=== PATIENT | female | born 2005 | race Caucasian/White ===

== ENCOUNTER 2024-10-02 12:00 | Emergency (ER) | payer OTHER, SELFPAY ==
[2024-10-02 12:02] VITALS: BP 162/99
[2024-10-02 12:33] LABS: % Basophils 0.8 % (0-2); % Eosinophils 1.5 % (0-6); % Lymphocytes 41.8 % (20.5-51.1); % Monocytes 12.1 % (1.7-9.3); % Neutrophils 43.8 % (42.2-75.2); Absolute Eosinophils 0.1 10^3/uL (0-0.7); Absolute Monocytes 0.6 10^3/uL (0.1-0.6); Absolute Neutrophils 2.1 10^3/uL (1.4-6.5); Hematocrit 38.6 % (37.0-47.0); Hemoglobin 13.1 g/dL (12.0-16.0); Mean Corp Hgb Conc. 33.9 g/dL (33.0-37.0); Mean Corpuscular Hgb 30.8 pg (27.0-31.0); Mean Corpuscular Volume 90.6 fL (81.0-99.0); Mean Platelet Volume 9.2 fL (7.4-10.4); Nucleated Red Blood Cells % 0 %; Platelet Count 323 10^3/uL (130-400); Red Blood Cell Count 4.26 10^6/uL (4.20-5.40); Red Cell Dist. Width 12.1 % (11.5-14.5); White Blood Cell Count 4.8 10^3/uL (4.8-10.8)
[2024-10-02 13:00] LABS: HCG, Serum Qualitative Screen Negative
[2024-10-02 13:02] LABS: ALT (SGPT) 12 U/L (0-35); AST (SGOT) 19 U/L (14-36); Albumin 4.8 g/dl (3.5-5.0); Alkaline Phosphatase 36 U/L (38-126); Blood Urea Nitrogen 11 mg/dl (7-17); Calcium 9.9 mg/dl (8.4-10.2); Carbon Dioxide 26 mmol/L (22-30); Chloride 108 mmol/L (98-107); Glucose 88 mg/dl (70-99); Lipase 42 U/L (23-300); Potassium 4.7 mmol/L (3.5-5.1); Sodium 141 mmol/L (135-145); Total Bilirubin 0.5 mg/dl (0.2-1.3); Total Protein 7.1 g/dl (6.3-8.2); eGFR > 60.00
--- NOTE | 2024-10-02 13:38 | ED.GENMED ---
History of Present Illness
General
Chief Complaint: Abdominal Pain
Source: patient
Time Seen by Provider: 10/02/24 13:26
History of Present Illness
History of Present Illness:
19-year-old female presents to the emergency room complaining about upper abdominal pain. Pain is primary located in the epigastrium and right upper quadrant. Pain was present when she woke up. She has decreased appetite but denies any nausea
vomiting. Patient had a similar episode pain couple days ago which resolved on its own. She does not equate the pain with anything she is eating. No previous abdominal operations. Nothing seems to make pain better or worse
Phy Exam
Physical Exam
Physical Exam:
General: Awake, Alert, Oriented X3. No acute distress.
Vitals: unremarkable
Head: Atraumatic
Eyes: Pupils equal, EOMI
Throat: Airway intact, no exudates
Neck: Trachea midline
Lungs: Clear and equal b/l
Heart: Regular rate, no murmurs
Abd: Soft, mild upper abdominal tenderness to palpation,, No pulsatile mass
Neuro: Nonfocal
Skin: Warm, dry, no rash
Extremities: pulses equal b/l, no edema
Course
Orders/Labs/Results
Orders:
Orders
10/02/24 12:16
Test Result ONCE
10/02/24 12:25
Complete Blood Count/With Diff Urgent
Comprehensive Metabolic Panel Urgent
HCG, Serum Qualitative Screen Urgent
Lipase Urgent
10/02/24 13:37
Ketorolac [Toradol] 15 mg IV NOW STA
US Abdomen Complete/Upper Urgent
Comment:
Reason For Exam: ruq/epigastric pain
Abnormal Lab Results
10/02/24
12:25
Monocytes % 12.1 H %
(1.7-9.3)
Chloride 108 H mmol/L
(98-107)
Alkaline Phosphatase 36 L U/L
(38-126)
10/02/24 12:25
10/02/24 12:25
Vital Signs
Initial and Last Documented VS:
Initial Vital Signs
Temp Pulse Resp BP Pulse Ox
97.6 F 80 18 162/99 99
10/02/24 12:02 10/02/24 12:02 10/02/24 12:02 10/02/24 12:02 10/02/24 12:02
Last Documented Vital Signs
Temp Pulse Resp BP Pulse Ox
97.6 F 56 18 103/68 97
10/02/24 12:02 10/02/24 14:51 10/02/24 14:51 10/02/24 14:51 10/02/24 14:51
MDM/Problems Addressed
Differential Diagnosis Includes:
Gastritis, cholecystitis, ectopic
MDM/Problems Addressed:
Patient presents with upper abdominal pain. Her exam is fairly benign. Labs are essentially normal. Ultrasound of the upper abdomen shows no acute abnormalities. Suspect gastritis. Recommend a course of [id number]-[id number] omeprazole.
*Radiology
Radiology exam reviewed: radiology read reviewed
*Pulse Oximetry
Patient hypoxic: no
Comment: 97
*Critical Care Note
Total Time (30-74mins, 75-104mins- exclusive of procedures): Not Applicable
ED Attending Note
-
Portions of this chart may have been created with voice recognition software.� Occasional wrong word or��sound alike� substitutions may have occurred due to the inherent limitations of voice recognition software.
Discharge Plan
Departure
Patient Disposition: Home (Routine Discharge)
Date of Disposition: 10/02/24
Time of Disposition: 15:40
Patient with high blood pressure during this ER visit?: No
Condition: Good
Discharge Problem:
Abdominal pain, Gastritis
Instructions: Gastritis (DC), Abdominal Pain
Referrals:
Elias Gill MD [Family Provider]
Activity Restrictions/Additional Instructions:
I suspect your abd pain is related to stomach upset. I would recommend taking a months worth of omeprazole which you can get over the counter
Interventions
Interventions:
*Risk Screen - Suicide Last Done: 10/02/24 12:02
*General Assessment Last Done: 10/02/24 12:02
*Neglect/Abuse Screening Last Done: 10/02/24 12:02
TP-Okebro-Bytxwhupxp Assessment Last Done: 10/02/24 12:27
Discharge Date and Time
Print Language: BRUNEIAN
[2024-10-02] MEDS: TORADOL 15 MG IV (13:44)
[2024-10-02 14:51] VITALS: BP 103/68
== END 2024-10-02 15:51 | disposition home or self-care (01) ==
LOC: EMR 12:00
PROVIDERS: EMERGENCY PHYSICIAN Emergency Medicine; FAMILY PHYSICIAN Family Medicine
DX: K29.70 Gastritis, unspecified, without bleeding (principal)
CPT/HCPCS: 96374; 99284; 76700; 80053; 83690; 84703; 85025